=== PATIENT | male | born 1965 | race Caucasian/White ===

== ENCOUNTER 2021-11-25 06:11 | Inpatient (IN) ==
[2021-11-21 12:41] LABS: Basophils # 0.1 10*3/uL (0.0-0.2); Basophils % 0.5 % (0.0-0.8); Eosinophils # 0.1 10*3/uL (0.0-0.87); Eosinophils % 1.1 % (0.00-10.9); Hematocrit 40.4 VOL% (42.0-52.0); Hemoglobin 13.1 GM/DL (14.0-18.0); Immature Granulocytes % 1.7 %; Immature Granulocytes Absolute 0.17 #; Lymphocytes # 0.9 10*3/uL (1.4-4.0); Mean Corpuscular HGB Conc 32.4 GM/DL (32-36); Mean Corpuscular Volume 94.2 FL (87-102); Mean Platelet Volume 11.3 FL (9.6-12.0); Monocytes % 9.8 % (1.7-12.7); Neutrophils % 77.9 % (38.7-73.9); Platelet Count 94 T/CUMM (130-400); Red Blood Count 4.29 MC/CUMM (3.8-5.5); Red Cell Distribution Width 14.9 % (9.3-17.3); White Blood Count 9.7 T/CUMM (4-12)
[2021-11-21 12:52] LABS: INR 1.1; PT Patient Result 11.9 SECS (10.5-12.0)
[2021-11-21 12:55] LABS: Albumin 2.7 G/DL (3.4-5.0); Bilirubin,Total 0.6 MG/DL (0.20-1.00); Calcium 8.3 MG/DL (8.5-10.1); Osmolality,Calculated 269.7 MOS/KG (273-304); Potassium 5.2 MMOL/L (3.5-5.1); Total Protein 6.6 G/DL (6.4-8.2)
[2021-11-25] MEDS ORDERED: DIAZEPAM 5 MG TABLET PO ONE (06:50)
[2021-11-25] MEDS ORDERED: FAMOTIDINE 20 MG TABLET PO ONE (06:50)
[2021-11-25] MEDS ORDERED: diphenhydrAMINE CAP 25 MG CAPSULE PO ONE (07:07)
[2021-11-25] MEDS ORDERED: LEVOFLOXACIN INJ 500 MG/100 ML PREMIX IV ONE (07:51)
[2021-11-25] MEDS: SODIUM CHLORIDE 0.45% 1,000 ML IV SCH ×2 (08:45→14:21)
[2021-11-25] MEDS ORDERED: HEPARIN/NACL 0.9% 2 UNITS/ML 4,000 UNIT/2,000 ML BAG IV ONE (08:46)
[2021-11-25] MEDS ORDERED: MIDAZOLAM 2 MG/2 ML VIAL ONE (09:11)
[2021-11-25] MEDS ORDERED: fentaNYL 100 MCG/2 ML VIAL ONE (09:12)
[2021-11-25] MEDS ORDERED: ALBUMIN 25% 12.5 GM/50 ML VIAL IV ONE ×2 (09:39)
[2021-11-25] MEDS ORDERED: TISSUE ADHESIVE 1 EACH APPLICATOR TOP ONE (09:44)
[2021-11-25] MEDS: ALBUMIN 25% 12.5 GM/50 ML VIAL IV PRN ×3 (10:21→11:15)
[2021-11-25] MEDS ORDERED: SUGAMMADEX 200 MG/2 ML VIAL IV ONE (11:55)
[2021-11-25] MEDS ORDERED: PHENYLEPHRINE DRIP 20 MG/250 ML PREMIX IV ONE (12:38)
[2021-11-25] MEDS ORDERED: propofoL 200 MG/20 ML VIAL IV ONE (12:38)
[2021-11-25] MEDS ORDERED: LIDOCAINE 2% 5 ML VIAL ONE (12:38)
[2021-11-25] MEDS ORDERED: SEVOFLURANE 1 UNIT/15 MINUTE INH ONE (12:38)
[2021-11-25] MEDS ORDERED: ETOMIDATE 40 MG/20 ML VIAL IV ONE (12:38)
[2021-11-25] MEDS ORDERED: PHENYLEPHRINE 1 MG/10 ML SYRINGE IV ONE (12:38)
[2021-11-25] MEDS ORDERED: SUCCINYLCHOLINE 200 MG/10 ML VIAL ONE (12:39)
[2021-11-25] MEDS ORDERED: ROCURONIUM 50 MG/5 ML VIAL IV ONE (12:39)
[2021-11-25] MEDS ORDERED: LACTATED RINGERS 1,000 ML IV ONE (12:39)
[2021-11-25] MEDS ORDERED: INFLUENZA VIRUS VACCINE 0.5 ML SYRINGE IM ONE (13:21)
[2021-11-25 13:51] LABS: Basophils % 0.3 % (0.0-0.8); Eosinophils # 0.1 10*3/uL (0.0-0.87); Eosinophils % 0.4 % (0.00-10.9); Hematocrit 32.1 VOL% (42.0-52.0); Hemoglobin 10.7 GM/DL (14.0-18.0); Immature Granulocytes % 0.8 %; Immature Granulocytes Absolute 0.09 #; Lymphocytes # 0.7 10*3/uL (1.4-4.0); Mean Corpuscular HGB Conc 33.3 GM/DL (32-36); Mean Corpuscular Volume 91.5 FL (87-102); Mean Platelet Volume 9.5 FL (9.6-12.0); Monocytes % 6.6 % (1.7-12.7); Neutrophils % 85.9 % (38.7-73.9); Platelet Count 57 T/CUMM (130-400); Red Blood Count 3.51 MC/CUMM (3.8-5.5); White Blood Count 11.3 T/CUMM (4-12)
[2021-11-25 13:58] LABS: INR 1.2
[2021-11-25] MEDS ORDERED: ONDANSETRON ODT 4 MG TABLET PO PRN (17:03)
[2021-11-26] MEDS: SODIUM CHLORIDE 0.45% 1,000 ML IV SCH (02:37)
[2021-11-26 07:12] VITALS: BP 103/58
== END 2021-11-26 10:30 | disposition home or self-care (01) | DRG 406 ==
LOC: N.RAD 06:11 → N.SDSINP 06:12 → N.3E 13:15 → N.RAD 11-26 10:30 → N.3E 11-29 15:44
PROVIDERS: ADMIT Radiology Diagnostic Radiology; ATTEND Radiology Diagnostic Radiology
PROC: IRTIPSW (2021-11-25 07:05)

== ENCOUNTER 2022-06-10 02:10 | Inpatient (IN) ==
[2022-06-10] MEDS ORDERED: IBUPROFEN 400 MG TABLET PO STA (02:50)
[2022-06-10] MEDS ORDERED: IBUPROFEN 400 MG TABLET ONE (02:54)
[2022-06-10 03:00] LABS: Eosinophils % 0.3 % (0.00-10.9); Hematocrit 24.4 VOL% (42.0-52.0); Hemoglobin 8.1 GM/DL (14.0-18.0); Immature Granulocytes % 0.7 %; Immature Granulocytes Absolute 0.05 #; Lymphocytes # 0.5 10*3/uL (1.4-4.0); Lymphocytes % 5.9 % (21.2-54.2); Mean Corpuscular HGB Conc 33.2 GM/DL (32-36); Mean Corpuscular Volume 96.1 FL (87-102); Mean Platelet Volume 10.5 FL (9.6-12.0); Monocytes % 0.5 % (1.7-12.7); Neutrophils % 92.6 % (38.7-73.9); Platelet Count 136 T/CUMM (130-400); Red Blood Count 2.54 MC/CUMM (3.8-5.5); Red Cell Distribution Width 15.6 % (9.3-17.3); White Blood Count 7.7 T/CUMM (4-12)
[2022-06-10 03:12] LABS: INR 1.6; PT Patient Result 16.7 SECS (10.1-12.1)
[2022-06-10 03:13] LABS: Alanine Aminotransferase 15 U/L (16-61); Albumin 1.2 G/DL (3.4-5.0); Alkaline Phosphatase 228 U/L (45-117); Amylase 28 U/L (25-115); Aspartate Amino Transferase 28 U/L (0-37); Blood Urea Nitrogen 28 MG/DL (7-18); Calcium 7.4 MG/DL (8.5-10.1); Carbon Dioxide 20 MMOL/L (21-32); Chloride 107 MMOL/L (98-107); Glucose 71 MG/DL (74-106); Sodium 136 MMOL/L (136-145); Total Protein 4.4 G/DL (6.4-8.2)
[2022-06-10 03:16] LABS: Lactic Acid 4.2 MMOL/L (0.4-2.0)
[2022-06-10] MEDS ORDERED: SODIUM CHLORIDE 0.9% 3,000 ML IV ONE (03:28)
[2022-06-10] MEDS ORDERED: PIPERACILLIN/TAZOBACTAM 3,375 MG in SODIUM CHLORIDE 0.9% 100 ML IV STA (03:29)
[2022-06-10 03:30] LABS: Band Neutrophils 9 % (0-10); Eosinophils 1 % (0-10); Lymphocytes 4 % (20-55); Platelet Estimate Adequate; Total Cells Counted 100
[2022-06-10 03:49] LABS: Hyaline Casts,Urine 28 /LPF (0-3); Mucus,Urine Occasional /LPF (Occasional); RBC,Urine <1 /HPF (0-4); Squamous Epithelial Cell,Urine Occasional /HPF (0-10); Urine Appearance Clear (Clear); Urine Color Yellow (Yellow)
[2022-06-10 03:50] LABS: Bilirubin,Urine Negative (Negative); Blood, Urine Negative (Negative); Glucose,Urine (UA) Negative (Negative); Ketones,Urine Negative (Negative); Nitrite,Urine Negative (Negative); Protein,Urine Negative (Negative); Urine pH 5.5 (4.5-8.0)
[2022-06-10] MEDS ORDERED: DEXTROSE 10% 250 ML BAG IV PRN (04:26)
[2022-06-10] MEDS ORDERED: GLUCAGON 1 MG VIAL IM PRN (04:26)
[2022-06-10] MEDS ORDERED: IBUPROFEN 400 MG TABLET PO PRN (04:26)
[2022-06-10] MEDS ORDERED: ONDANSETRON 4 MG/2 ML VIAL IV PRN (04:26)
[2022-06-10] MEDS ORDERED: SODIUM CHLORIDE 0.9% 500 ML IV STA ×2 (04:50→05:32)
[2022-06-10] MEDS ORDERED: ALBUMIN 25% 25 GM/100 ML VIAL IV ONE ×2 (06:10→06:30)
[2022-06-10] MEDS: VANCOMYCIN INJ 1,500 MG in SODIUM CHLORIDE 0.9% 500 ML IV SCH (06:45)
[2022-06-10] MEDS ORDERED: DOXYCYCLINE HYCLATE INJ 100 MG in SODIUM CHLORIDE 0.9% 100 ML IV SCH ×2 (07:00→11:00)
[2022-06-10] MEDS: PANTOPRAZOLE 40 MG TABLET PO SCH (10:16)
[2022-06-10] MEDS: PIPERACILLIN/TAZOBACTAM 3,375 MG in SODIUM CHLORIDE 0.9% 100 ML IV SCH ×2 (13:08→20:50)
[2022-06-10] MEDS: SPIRONOLACTONE 25 MG TABLET PO SCH (20:50)
[2022-06-10] MEDS: RIFAXIMIN 550 MG TABLET PO SCH (20:50)
[2022-06-11] MEDS: VANCOMYCIN INJ 1,500 MG in SODIUM CHLORIDE 0.9% 500 ML IV SCH ×2 (01:13→17:46)
[2022-06-11] MEDS: PIPERACILLIN/TAZOBACTAM 3,375 MG in SODIUM CHLORIDE 0.9% 100 ML IV SCH ×3 (05:20→20:19)
[2022-06-11 05:36] LABS: Basophils % 0.2 % (0.0-0.8); Eosinophils # 0.4 10*3/uL (0.0-0.87); Eosinophils % 2.1 % (0.00-10.9); Hematocrit 23.8 VOL% (42.0-52.0); Hemoglobin 7.3 GM/DL (14.0-18.0); Lymphocytes # 0.9 10*3/uL (1.4-4.0); Lymphocytes % 4.5 % (21.2-54.2); Mean Corpuscular HGB Conc 30.7 GM/DL (32-36); Mean Corpuscular Volume 102.1 FL (87-102); Mean Platelet Volume 11.4 FL (9.6-12.0); Monocytes # 1.3 10*3/uL (0.11-0.8); Monocytes % 6.5 % (1.7-12.7); Neutrophils % 85.7 % (38.7-73.9); Platelet Count 78 T/CUMM (130-400); Red Blood Count 2.33 MC/CUMM (3.8-5.5); Red Cell Distribution Width 15.8 % (9.3-17.3); White Blood Count 19.3 T/CUMM (4-12)
[2022-06-11 06:02] LABS: Band Neutrophils 7 % (0-10); Eosinophils 2 % (0-10); Lymphocytes 1 % (20-55); Total Cells Counted 100
[2022-06-11 06:03] LABS: Macrocytosis Slight; Ovalocytes Slight
[2022-06-11 06:13] LABS: Albumin 1.3 G/DL (3.4-5.0); Bilirubin,Total 1.2 MG/DL (0.20-1.00); Calcium 7.1 MG/DL (8.5-10.1); Osmolality,Calculated 280.8 MOS/KG (273-304); Potassium 3.6 MMOL/L (3.5-5.1); Total Protein 4.4 G/DL (6.4-8.2)
[2022-06-11] MEDS: ASPIRIN EC 81 MG TABLET PO SCH (08:10)
[2022-06-11 08:24] LABS: INR 1.6; PT Patient Result 17.4 SECS (10.1-12.1)
[2022-06-11] MEDS: ESCITALOPRAM 10 MG TABLET PO SCH (08:51)
[2022-06-11] MEDS: PANTOPRAZOLE 40 MG TABLET PO SCH (08:51)
[2022-06-11] MEDS: RIFAXIMIN 550 MG TABLET PO SCH ×2 (08:53→20:19)
[2022-06-11] MEDS: SPIRONOLACTONE 25 MG TABLET PO SCH ×2 (08:54→20:19)
[2022-06-11 12:33] LABS: Glucose,Peritoneal Fluid 122 MG/DL; LDH,Peritoneal Fluid 38 U/L; Total Protein,Peritoneal Fluid < 1.0 G/DL
[2022-06-11 12:47] LABS: Neutrophils,Peritoneal Fluid 73 %
[2022-06-11 12:48] LABS: RBC,Peritoneal Fluid 153 T/CUMM
[2022-06-12] MEDS: PIPERACILLIN/TAZOBACTAM 3,375 MG in SODIUM CHLORIDE 0.9% 100 ML IV SCH ×2 (04:09→15:18)
[2022-06-12 04:51] LABS: Basophils % 0.1 % (0.0-0.8); Eosinophils # 0.2 10*3/uL (0.0-0.87); Eosinophils % 2.4 % (0.00-10.9); Hematocrit 21.4 VOL% (42.0-52.0); Hemoglobin 7.1 GM/DL (14.0-18.0); Immature Granulocytes % 1.8 %; Immature Granulocytes Absolute 0.14 #; Lymphocytes # 0.6 10*3/uL (1.4-4.0); Mean Corpuscular HGB Conc 33.2 GM/DL (32-36); Monocytes # 0.8 10*3/uL (0.11-0.8); Neutrophils % 78.7 % (38.7-73.9); Platelet Count 71 T/CUMM (130-400); Red Blood Count 2.23 MC/CUMM (3.8-5.5); Red Cell Distribution Width 15.3 % (9.3-17.3)
[2022-06-12 05:14] LABS: Albumin 1.3 G/DL (3.4-5.0); Bilirubin,Total 1.3 MG/DL (0.20-1.00); Calcium 7.1 MG/DL (8.5-10.1); Potassium 3.4 MMOL/L (3.5-5.1)
[2022-06-12 05:36] LABS: Hypochromia Slight; Microcytosis Slight; Platelet Estimate Decreased
[2022-06-12] MEDS ORDERED: MAGNESIUM SULF RIDER 4 GM/100 ML PREMIX IV ONE (07:01)
[2022-06-12] MEDS ORDERED: POTASSIUM CHLORIDE 20 MEQ TABLET PO ONE (07:02)
[2022-06-12] MEDS: RIFAXIMIN 550 MG TABLET PO SCH ×2 (09:24→20:37)
[2022-06-12] MEDS: ASPIRIN EC 81 MG TABLET PO SCH (09:24)
[2022-06-12] MEDS: PANTOPRAZOLE 40 MG TABLET PO SCH (09:24)
[2022-06-12] MEDS: SPIRONOLACTONE 25 MG TABLET PO SCH ×2 (09:24→20:37)
[2022-06-12] MEDS: ESCITALOPRAM 10 MG TABLET PO SCH (09:24)
[2022-06-12] MEDS: VANCOMYCIN INJ 1,500 MG in SODIUM CHLORIDE 0.9% 500 ML IV SCH (14:17)
[2022-06-12 16:15] LABS: Mucus,Urine Occasional /LPF (Occasional); RBC,Urine 10 /HPF (0-4); Squamous Epithelial Cell,Urine Occasional /HPF (0-10)
[2022-06-12 16:16] LABS: Urine Appearance Clear (Clear); Urine Color Yellow (Yellow); Urine pH 5.5 (4.5-8.0)
[2022-06-12 16:17] LABS: Bilirubin,Urine Negative (Negative); Blood, Urine Small mg/dL (Negative); Glucose,Urine (UA) Negative (Negative); Ketones,Urine Negative (Negative); Nitrite,Urine Negative (Negative); Protein,Urine Negative (Negative); Urine Specific Gravity 1.015 (1.001-1.035); Urine Urobilinogen 0.2 eU/dL (<2.0)
[2022-06-12] MEDS ORDERED: TAMSULOSIN 0.4 MG CAPSULE PO SCH (21:00)
[2022-06-13] MEDS: PIPERACILLIN/TAZOBACTAM 3,375 MG in SODIUM CHLORIDE 0.9% 100 ML IV SCH ×2 (00:12→08:55)
[2022-06-13 05:08] LABS: Basophils % 0.3 % (0.0-0.8); Eosinophils # 0.2 10*3/uL (0.0-0.87); Eosinophils % 3.1 % (0.00-10.9); Hematocrit 23.9 VOL% (42.0-52.0); Immature Granulocytes % 2.2 %; Immature Granulocytes Absolute 0.17 #; Lymphocytes # 0.7 10*3/uL (1.4-4.0); Lymphocytes % 9.3 % (21.2-54.2); Mean Corpuscular HGB Conc 32.2 GM/DL (32-36); Mean Corpuscular Volume 95.6 FL (87-102); Monocytes # 0.9 10*3/uL (0.11-0.8); Monocytes % 11.5 % (1.7-12.7); Neutrophils % 73.6 % (38.7-73.9); Red Cell Distribution Width 15.4 % (9.3-17.3); White Blood Count 7.8 T/CUMM (4-12)
[2022-06-13 05:09] LABS: Hemoglobin 7.7 GM/DL (14.0-18.0); Platelet Count 78 T/CUMM (130-400)
[2022-06-13 05:26] LABS: Albumin 1.2 G/DL (3.4-5.0); Bilirubin,Total 0.9 MG/DL (0.20-1.00); Osmolality,Calculated 272.2 MOS/KG (273-304); Potassium 3.4 MMOL/L (3.5-5.1); Total Protein 4.2 G/DL (6.4-8.2)
[2022-06-13 06:48] LABS: Platelet Estimate Decreased
[2022-06-13] MEDS ORDERED: POTASSIUM CHLORIDE 20 MEQ TABLET PO ONE (08:19)
[2022-06-13] MEDS: RIFAXIMIN 550 MG TABLET PO SCH (08:56)
[2022-06-13] MEDS: SPIRONOLACTONE 25 MG TABLET PO SCH (08:56)
[2022-06-13] MEDS: ASPIRIN EC 81 MG TABLET PO SCH (08:56)
[2022-06-13] MEDS: PANTOPRAZOLE 40 MG TABLET PO SCH (08:56)
[2022-06-13] MEDS: ESCITALOPRAM 10 MG TABLET PO SCH (08:56)
[2022-06-13 12:25] VITALS: BP 112/69
== END 2022-06-13 14:45 | disposition home or self-care (01) | DRG 872 ==
LOC: N.ED 02:10 → SUATTDRO 04:26 → N.5E 04:26 → N.TELEN 06:48
PROVIDERS: ADMIT Internal Medicine; ATTEND Internal Medicine Geriatric Medicine

== ENCOUNTER 2022-08-08 06:57 | Observation (INO) ==
[2022-08-08 10:39] LABS: Basophils % 0.1 % (0.0-0.8); Eosinophils # 0.1 10*3/uL (0.0-0.87); Eosinophils % 1.5 % (0.00-10.9); Hematocrit 18.9 VOL% (42.0-52.0); Immature Granulocytes % 0.7 %; Immature Granulocytes Absolute 0.06 #; Lymphocytes # 0.8 10*3/uL (1.4-4.0); Lymphocytes % 9.8 % (21.2-54.2); Mean Corpuscular HGB Conc 31.7 GM/DL (32-36); Mean Corpuscular Volume 95.9 FL (87-102); Mean Platelet Volume 9.9 FL (9.6-12.0); Monocytes # 0.9 10*3/uL (0.11-0.8); Monocytes % 10.8 % (1.7-12.7); Neutrophils % 77.1 % (38.7-73.9); Platelet Count 88 T/CUMM (130-400); Red Blood Count 1.97 MC/CUMM (3.8-5.5); Red Cell Distribution Width 15.9 % (9.3-17.3); White Blood Count 8.1 T/CUMM (4-12)
[2022-08-08 10:52] LABS: Calcium 7.2 MG/DL (8.5-10.1); Potassium 3.9 MMOL/L (3.5-5.1)
[2022-08-08 11:00] LABS: Ferritin 84.3 ng/mL (26-388)
[2022-08-08] MEDS ORDERED: ACETAMINOPHEN 325 MG TABLET PO PRN (11:11)
[2022-08-08] MEDS ORDERED: DOCUSATE SODIUM 100 MG CAPSULE PO PRN (11:11)
[2022-08-08] MEDS ORDERED: ONDANSETRON 4 MG/2 ML VIAL IV PRN (11:11)
[2022-08-08] MEDS ORDERED: hydrALAZINE 20 MG/1 ML VIAL IV PRN (11:11)
[2022-08-08] MEDS ORDERED: ALBUTEROL/IPRATROPIUM 3 ML NEB RESP TX PRN (11:11)
[2022-08-08 11:42] LABS: Sedimentation Rate-Westergren 48 MM/HR (0-20)
[2022-08-08] MEDS ORDERED: LIDOCAINE 5% PATCH TRANSDERM PRN (12:15)
[2022-08-08 12:34] LABS: Mucus,Urine Occasional /LPF (Occasional); RBC,Urine 4 /HPF (0-4); Urine Appearance Clear (Clear); Urine Color Yellow (Yellow); Urine pH 5.5 (4.5-8.0)
[2022-08-08 12:35] LABS: Bilirubin,Urine Negative (Negative); Blood, Urine Moderate mg/dL (Negative); Glucose,Urine (UA) Negative (Negative); Ketones,Urine Negative (Negative); Nitrite,Urine Negative (Negative); Protein,Urine Negative (Negative); Urine Urobilinogen 0.2 eU/dL (<2.0)
[2022-08-08] MEDS ORDERED: FERRIC GLUCONATE COMPLEX 125 MG in SODIUM CHLORIDE 0.9% 100 ML IV ONE (15:00)
[2022-08-08] MEDS ORDERED: SODIUM CHLORIDE 0.9% 1,000 ML IV PRN (16:58)
[2022-08-08 20:18] LABS: Folate 14.23 NG/ML (5.38-24.0); Vitamin B12 632 PG/ML (211-911)
[2022-08-08] MEDS: RIFAXIMIN 550 MG TABLET PO SCH (22:01)
[2022-08-08] MEDS: PANTOPRAZOLE 40 MG VIAL IV SCH (22:06)
[2022-08-09 05:04] LABS: Basophils % 0.2 % (0.0-0.8); Eosinophils # 0.3 10*3/uL (0.0-0.87); Eosinophils % 3.6 % (0.00-10.9); Hematocrit 25.7 VOL% (42.0-52.0); Immature Granulocytes % 0.7 %; Immature Granulocytes Absolute 0.06 #; Lymphocytes % 11.3 % (21.2-54.2); Mean Corpuscular HGB Conc 32.7 GM/DL (32-36); Mean Corpuscular Volume 91.5 FL (87-102); Mean Platelet Volume 9.7 FL (9.6-12.0); Monocytes # 1.1 10*3/uL (0.11-0.8); Monocytes % 12.5 % (1.7-12.7); Neutrophils % 71.7 % (38.7-73.9); Platelet Count 75 T/CUMM (130-400); Red Cell Distribution Width 16.9 % (9.3-17.3); White Blood Count 8.4 T/CUMM (4-12)
[2022-08-09 05:13] LABS: Red Blood Count 2.81 MC/CUMM (3.8-5.5)
[2022-08-09 05:14] LABS: Hemoglobin 8.4 GM/DL (14.0-18.0)
[2022-08-09 05:33] LABS: Hypochromia Slight; Platelet Estimate Decreased
[2022-08-09 06:05] LABS: Calcium 7.2 MG/DL (8.5-10.1); Osmolality,Calculated 273.2 MOS/KG (273-304); Potassium 3.6 MMOL/L (3.5-5.1); Risk Ratio 3.59; Thyroid Stimulating Hormone 2.63 uIU/ml (0.358-3.74); VLDL Cholesterol 13.4 MG/DL
[2022-08-09] MEDS ORDERED: FUROSEMIDE 20 MG TABLET PO SCH (09:00)
[2022-08-09] MEDS ORDERED: PANTOPRAZOLE 40 MG TABLET PO SCH (09:00)
[2022-08-09] MEDS ORDERED: MAGNESIUM SULF RIDER 2 GM/50 ML PREMIX IV ONE (09:57)
[2022-08-09] MEDS: RIFAXIMIN 550 MG TABLET PO SCH (10:43)
[2022-08-09] MEDS: PANTOPRAZOLE 40 MG VIAL IV SCH (10:43)
[2022-08-09 11:45] VITALS: BP 103/59
[2022-08-10] MEDS ORDERED: FERRIC GLUCONATE COMPLEX 125 MG in SODIUM CHLORIDE 0.9% 100 ML IV SCH (09:00)
[2022-08-11 09:51] LABS: Hemoglobin A1 (Alkaline) 97.5 % (96.5-98.5); Hemoglobin A2 (Alkaline) 2.5 % (1.5-3.5)
== END 2022-08-09 14:44 | disposition home or self-care (01) ==
LOC: N.EDINP 06:57 → N.ED 06:57 → N.EDINP 13:05 → N.3E 13:48
PROVIDERS: ADMIT Internal Medicine; ATTEND Internal Medicine